=== PATIENT | male | born 1960 | race Caucasian/White ===

== ENCOUNTER 2018-11-22 01:46 | Inpatient (IN) | payer BC, OTHER ==
--- NOTE | 2018-11-21 11:20 | LEVENE H&P ---
DATE OF ADMISSION: November 22, 2018 IDENTIFICATION/CHIEF COMPLAINT The patient is a 57-year-old gentleman with a chief complaint of left knee pain. HISTORY OF PRESENT ILLNESS Patient has a history of knee arthritis progressively painful and debilitating, refractor to conservative care. Surgery is indicated to relieve symptoms after failure of nonoperative measures. PAST MEDICAL HISTORY 1. Silent AK. 2. Childhood asthma. 3. Arthritis. 4. Neck and back problems. 5. History of throat cancer, clear after surgery and radiation therapy. 6. Remote history of MRSA. PAST SURGICAL HISTORY 1. Total of eight knee surgeries in the 1980s. 2. Groin hernia. 3. Thumb repair. 4. Three neck operations. ALLERGIES Pet dander, grass and environmental allergies. No known drug allergies. CURRENT MEDICATIONS Singulair 10 mg p.o. q.d., mirtazapine 30 mg p.o. q.h.s., Trazodone 50 mg p.o. q.h.s., Albuterol rescue inhaler as needed. FAMILY HISTORY Mother with skin cancer and hypertension. Father notable for heart disease and cancer. SOCIAL HISTORY Negative for tobacco use. He did smoke and quit in 2018. He used to drink daily, 8 or 10 beers per day. Presently, not drinking. PHYSICAL EXAMINATION GENERAL: This is a well-developed, well-nourished male who appears stated age. HEENT: Normocephalic, atraumatic. NECK: Supple. LUNGS: Clear. HEART: Regular. ABDOMEN: Soft. ORTHOPEDIC EXAMINATION Knee has a well-healed surgical scar consistent with prior operation. Stiffened on range. Crepitus noted. Effusion present. Extensor function is intact. Gross stability is good. Radiographs demonstrate end-stage knee arthritis. ASSESSMENT Left knee end-stage degenerative joint disease, progressively painful and debilitating, refractor to conservative care. PLAN Per patient's request, we are going to proceed with total knee arthroplasty. Nature of the procedure, risks and benefits and anticipatory rehab course reviewed. The risks of the procedure include, but are not limited, to , major medical or anesthetic complication, infection, neurovascular injury, blood transfusion, stiffness, scarring, fracture, tendon rupture, instability, implant loosening, migration or failure, persistent or recurrent pain, need for additional surgery and other unforeseen. He understands and wishes to proceed. A signed permit is placed in the chart. No guarantees are given or implied. [facility]
[2018-11-21 13:29] LABS: INR 0.97
[2018-11-22] VITALS (14 sets, daily range): BP systolic 97–149; BP diastolic 68–105
[~2018-11-22] VITALS: Ht 180.3 cm; Wt 73.9 kg
[~2018-11-22 01:46] MED LIST: ACET500T68 PO; MIRT-25 PO; MONT10TA PO; TRAZ50TA52 PO
[2018-11-22] MEDS: NORMOSOL R SOLN(*) 1000 ML BAG 1,000 ML IV PRN ×2 (10:01→12:40)
[2018-11-22] MEDS ORDERED: MIDAZOLAM 2 MG/2 ML VIAL IVP PRN (10:45)
[2018-11-22] MEDS ORDERED: ceFAZolin(*) 1 GM VIAL 1 GM in NS(*) 0.9% 100 ML MINI-BAG 100 ML IVPB ONE (10:45)
[2018-11-22] MEDS ORDERED: LIDOCAINE/SOD BICARB 8.4% SYR ID ONE (10:45)
[2018-11-22] MEDS ORDERED: CELECOXIB 200 MG CAP PO ONE (10:45)
[2018-11-22] MEDS ORDERED: FAMOTIDINE 20 MG TAB PO ONE (10:45)
[2018-11-22] MEDS ORDERED: PREGABALIN 150 MG CAPSULE PO ONE (10:45)
[2018-11-22] MEDS ORDERED: ACETAMINOPHEN 500 MG TAB PO ONE (10:45)
[2018-11-22] MEDS ORDERED: ROPIVACAINE/EPI/CLONIDINE/KET 50 ML SYRINGE INJ ONE (10:45)
[2018-11-22] MEDS ORDERED: TRANEXAMIC AC 1000 MG/10ML SDV 1,000 MG in DEXTROSE 5% 50 ML BAG 50 ML IV ONE (10:45)
[2018-11-22] MEDS ORDERED: ONDANSETRON 4 MG/2 ML VIAL ONE (10:52)
[2018-11-22] MEDS ORDERED: PROPOFOL EMUL(*) 10MG/ML 20 ML 20 ML ONE (10:52)
[2018-11-22] MEDS ORDERED: DEXAMETHASONE SOD PHOS 10MG/ML ONE (10:52)
[2018-11-22] MEDS ORDERED: LIDOCAINE MPF 1% 5 ML VIAL ONE (10:52)
[2018-11-22] MEDS ORDERED: KETAMINE HCL 200 MG/20 ML MDV ONE (10:53)
[2018-11-22] MEDS ORDERED: VANCOMYCIN 1 GM VIAL ONE (12:00)
[2018-11-22] MEDS ORDERED: fentaNYL CITR 100 MCG/2 ML AMP ONE ×2 (12:03→15:22)
[2018-11-22] MEDS ORDERED: LACTATED RINGER 3000 ML BAG IR ONE (13:24)
[2018-11-22] MEDS ORDERED: NORMOSOL R SOLN(*) 1000 ML BAG 1,000 ML IV PRN (14:55)
[2018-11-22] MEDS ORDERED: diphenhydrAMINE 50 MG/ML VIAL IVP PRN (14:55)
[2018-11-22] MEDS ORDERED: BISACODYL 10 MG SUPP PR PRN (14:55)
[2018-11-22] MEDS ORDERED: DIAZEPAM 5 MG TAB PO PRN (14:55)
[2018-11-22] MEDS ORDERED: PROMETHAZINE 25 MG/ML 1 ML AMP IVP PRN (14:55)
[2018-11-22] MEDS ORDERED: FLUSH 10 ML SYR IVP PRN (14:55)
[2018-11-22] MEDS ORDERED: MAGNESIUM HYDROXIDE* 30ML UDCP PO PRN (14:55)
[2018-11-22] MEDS ORDERED: ACETAMINOPHEN 325 MG TAB PO PRN (14:55)
[2018-11-22] MEDS ORDERED: BENZOCAINE/MENTHOL 1 EACH LOZG PO PRN (14:55)
[2018-11-22] MEDS ORDERED: diphenhydrAMINE 25 MG CAP PO PRN (14:55)
[2018-11-22] MEDS ORDERED: ZOLPIDEM TARTRATE 5 MG TAB PO PRN (14:55)
--- NOTE | 2018-11-22 15:11 | RADIOLOGY IMAGING REPORT ---
FACILITY: [facility] - [place], [place] PATIENT NAME: Orestes Leung : 1960 MR: [id number] V: [id number] EXAM DATE: ORDERING PHYSICIAN: JOHNNY GARCÍA TECHNOLOGIST: Location: [facility] [place] Patient: Orestes Leung : 1960 Visit/Account:[id number] Date of Sevice: 11/22/2018 KNEE LIMITED LEFT Indication: POST-OP PLACEMENT Comparison: None. Findings: There are postoperative changes from a left total knee arthroplasty. The femoral tibial an d patellar components appear in good alignment. Skin elsy are noted. IMPRESSION: Postoperative changes left total knee arthroplasty. Report Dictated By: Andrey Guo at 11/22/2018 3:02 PM Report E-Signed By: Andrey Guo at 11/22/2018 3:03 PM WSN:[id number]
[2018-11-22] MEDS: APAP/HYDROCODONE 325/7.5 TAB PO PRN ×2 (15:58→20:52)
--- NOTE | 2018-11-22 16:35 | Hospitalist Consultation ---
History of Present Illness Requesting Physician Dr. Graham Reason for Consult Medical Management of Comorbidities Chief Complaint s/p left knee replacement History of Present Illness He was admitted s/p left knee replacement. It is reported the surgery went well and without complication. History Problems: (1) Seasonal allergies Status: Chronic (2) Depression Status: Chronic (3) Squamous cell carcinoma Status: Chronic Home Meds Reported Medications Acetaminophen (TYLENOL EXTRA STRENGTH) 500 Mg Tablet, 500 MG PO QHS, TAB 11/15/18 Montelukast Sodium (SINGULAIR) 10 Mg Tablet, 1 TAB PO QHS, TAB 11/15/18 Mirtazapine (MIRTAZAPINE) 30 Mg Tablet, 30 MG PO QHS 11/15/18 Trazodone Hcl (TRAZODONE HCL) 50 Mg Tablet, 50 MG PO QHS 11/15/18 Allergies: Coded Allergies: No Known Drug Allergies (Unverified , 11/15/18) Patient History: FH: HTN (hypertension) FATHER FH: cancer MOTHER FH: heart disease MOTHER FH: skin cancer FATHER Hx Smoking: Yes (1PPD X 20 YEARS QUIT 2018 ) Smoking Status: Former Smoker Caffeine Intake: Tea, Soda Caffeine/Cups Per Day: OCC Hx Alcohol Use: Yes Alcohol Used: Beer Hx Substance Use Disorder: No Review of Systems All Systems Reviewed/Normal: Yes, Except as Noted Exam Vital Signs Vital Signs Date Time Temp Pulse Resp B/P (MAP) Pulse Ox O2 Delivery O2 Flow Rate FiO2 11/22/18 16:16 97.7 91 16 135/93 (107) 99 Nasal Cannula 2.0 General Appearance: Alert, Awake, No Acute Distress, Afebrile Neuro: No Gross deficits Cardiovascular: Regular Rate and Rhythm Respiratory: No Respiratory Distress, Clear to Auscultation Psych: Alert & Oriented X3, Appropriate Mood & Affect Assessment and Plan Problems: (1) Status post left knee replacement Status: Acute Assessment & Plan: Followed by Dr. Graham. He will be placed on Aspirin for DVT prophylaxis. (2) Seasonal allergies Status: Chronic Assessment & Plan: Continue chronic Singulair. (3) Depression Status: Chronic Assessment & Plan: Continue chronic Trazodone and Mirtazapine. (4) Squamous cell carcinoma Status: Chronic Assessment & Plan: In throat. In remission as of 09/2018. Venous Thromboembolism Antithrombotics Is Pt On Any Antithrombotics?: No LINDA BUTTS [facility] Nov 22, 2018 16:35
[2018-11-22] MEDS: CELECOXIB 200 MG CAP PO SCH (17:22)
--- NOTE | 2018-11-22 18:36 | NUR ---
Physical Therapy Impression PT eval completed followed by transfer trng. Pt able to tolerate side step at EOB only. Pt unaware of proprioception and using very narrow base of support with side step. Unsafe to advance to distance ambulation at this time. Pt encouraged to get up later this evening with nursing once spinal block is less effective. Physical Therapy Goals 1. Pt to be SBA/Mod indep with bed mobility and supine to/from sit trnsfrs 2. Pt to be SBA/Mod indep with sit to/from stand transfers 3. Pt to be SBA/Mod indep to ambulate x 100' with 4WW safely 4. Pt to complete up/down platform step with CGA/SBA Patient's Goals
[2018-11-22] MEDS ORDERED: MIRTAZAPINE 30 MG TAB 30 MG TAB PO SCH (21:00)
[2018-11-22] MEDS ORDERED: traZODone HCL 50 MG TAB PO SCH (21:00)
[2018-11-22] MEDS ORDERED: MONTELUKAST SODIUM 10 MG TAB PO SCH (21:00)
[2018-11-22] MEDS: ceFAZolin(*) 1 GM VIAL 1 GM in NS(*) 0.9% 100 ML MINI-BAG 100 ML IVPB SCH (21:19)
[2018-11-23] MEDS: APAP/HYDROCODONE 325/7.5 TAB PO PRN ×2 (02:55→07:43)
[2018-11-23 02:56] VITALS: BP 131/81
[2018-11-23] MEDS: ceFAZolin(*) 1 GM VIAL 1 GM in NS(*) 0.9% 100 ML MINI-BAG 100 ML IVPB SCH (04:27)
--- NOTE | 2018-11-23 06:17 | OPERATIVE REPORT 1 ---
EVENT DATE: November 22, 2018 SURGEON: Malik Graham MD ANESTHESIOLOGIST: Baljit Wynn MD ANESTHESIA: General plus spinal. DIRECTOR OF STRATEGIC COMMUNICATIONS: Fernando Zazueta PA-C PREOPERATIVE DIAGNOSIS Left knee degenerative joint disease. POSTOPERATIVE DIAGNOSIS Left knee degenerative joint disease. PROCEDURE PERFORMED Left total knee arthroplasty. ESTIMATED BLOOD LOSS Minimal. DRAINS None. SPECIMENS None. COMPLICATIONS None apparent. TOURNIQUET TIME 42 minutes. IMPLANTS USED [place] Triathlon knee system with 4 left PS femur, 5 standard tibial baseplate, 36 mm [place] symmetric all-polyethylene patellar button, 11 mm PS tibial tray liner. Polyethylene is X3. INDICATIONS FOR PROCEDURE Orestes has prolonged and intractable pain related to end-stage knee arthritis. Surgery is indicated to relieve symptoms after failure of nonoperative measures. DESCRIPTION OF PROCEDURE Patient was taken to the operating room and placed supine on the operating table. Spinal block was administered by the anesthesiologist. General anesthesia was induced. The antibiotics and TXA were administered IV. Left lower extremity was prepped and draped in the usual sterile fashion for orthopedic surgery. He has two old incisions, a low medial incision and an irregular lateral parapatellar incision. In order to minimize risk of skin devascularization, a lateral incision was selected, as he is lean and this will easily be mobilized in order to permit a medial parapatellar arthrotomy to be performed. Incision was carried down through the scar directly to the extensor mechanism. Full- thickness flap was developed far enough medially to allow the medial parapatellar arthrotomy to be performed. Patella was everted. Knee was brought into a flexed position. Fat pad and anterior horns of the menisci and the cruciate ligaments were debrided. A very titrated minimal medial release was performed subperiosteally to start to balance the knee. Step drill was used to enter the distal femur. A [id number] alignment guide was used to engage the isthmus. Cut was set for 6 degrees of valgus relative to the anatomic axis. A 10 mm resection block was applied and pinned. Cuts were made with an oscillating saw. AP sizer cut was applied to the distal femur, positioned for 3 degrees of external rotation relative to the posterior condyles. A size 4 was optimal without risk of notching. A four-in-one cutting block was applied. Anterior, posterior, posterior chamfer, and anterior chamfer cuts were made respectively. PS block was applied. Center, medial and lateral bone was removed from the box. Trial femur had nice fit. Attention was then turned to tibial preparation. Extramedullary guide was applied and positioned for varus, valgus, posterior slope, and rotation. It was set to resect 9 mm from the relatively intact lateral tibial plateau. It was dropped down a couple millimeters to assure an adequate cut. Block was pinned. Extramedullary alignment check was made and the cuts made with an oscillating saw. No further releases other than removal of spurs and some posterior bone were required to balance the gaps. A 5 tibial base plate provided optimal bony coverage without soft tissue overhang. This was inserted along with the trial liner and trial femur. The knee was brought into extension. Patella was taken from the starting thickness of 25 to residual of 15 with patellar clamp and oscillating saw. The 36 provided optimal bony coverage without soft tissue overhang. Lug holes were drilled. The patella tracked nicely with a no-touch technique. Final tibial preparation consisted of assuring appropriate rotational and translational position of the component. Boss was reamed, fin was punched, and surface was lavaged. Mix of methacrylate was made and components cemented in single stage. Once cement was fully polymerized, tourniquet was deflated and hemostasis assured. The wound was copiously lavaged to remove all loose debris. The 11 PS tibial tray trial filled up the gap ideally, allowing the knee to drop to full extension without hyperextension, providing optimal soft tissue tension and stability. Tray was lavaged and dried and the excellent liner was locked into the baseplate. Joint was reduced. Arthrotomy was closed in flexion with #2 Ethibond, subcu with 3-0 Vicryl, and skin with surgical elsy. Xeroform was applied, followed by dry sterile dressing and compression wrap. Patient was awakened from anesthesia and taken to the recovery room in stable condition, having tolerated the procedure well. Plan is for standard TKA rehab. [facility]
[2018-11-23 07:29] VITALS: BP 100/81
[2018-11-23] MEDS ORDERED: ASPI-757 PO (08:00)
[2018-11-23] MEDS ORDERED: HYDR-654 PO (09:00)
[2018-11-23] MEDS ORDERED: ASPIRIN 325 MG TAB PO SCH (09:00)
--- NOTE | 2018-11-23 09:00 | NUR ---
Physical Therapy Impression PT goals met. Pt ready for d/c from a mobility stand point. Physical Therapy Goals 1. Pt to be SBA/Mod indep with bed mobility and supine to/from sit trnsfrs 2. Pt to be SBA/Mod indep with sit to/from stand transfers 3. Pt to be SBA/Mod indep to ambulate x 100' with 4WW safely 4. Pt to complete up/down platform step with CGA/SBA Patient's Goals
[2018-11-23] MEDS: CELECOXIB 200 MG CAP PO SCH (09:31)
--- NOTE | 2018-11-23 09:36 | Hospitalist Progress Note ---
Subjective Progress Notes Subjective He was admitted s/p knee replacement. He had no acute events overnight. He has no complaints this morning. Patient Complains of: Cardiovascular: No: Chest Pain Respiratory: No: Shortness of Breath Physical Exam Vital Signs Date Time Temp Pulse Resp B/P (MAP) Pulse Ox O2 Delivery O2 Flow Rate FiO2 11/23/18 07:29 98.3 100/81 (87) 11/23/18 02:56 103 96 11/22/18 21:14 Nasal Cannula 2.0 11/22/18 16:16 16 Intake and Output 11/23/18 01:03 Intake Total 4925 ml Output Total 1605 ml Balance 3320 ml Intake Oral 1220 ml IV Total 1855 ml Other 1850 ml Output Urine Total 1575 ml Estimated Blood Loss 30 ml # Voids 2 General Appearance: Alert, Awake, No Acute Distress, Afebrile Neuro: No Gross deficits Cardiovascular: Regular Rate and Rhythm Respiratory: No Respiratory Distress, Clear to Auscultation Psych: Alert & Oriented X3, Appropriate Mood & Affect Assessment and Plan Problems: (1) Status post left knee replacement Status: Acute Assessment & Plan: Followed by Dr. Graham. He will be placed on Aspirin for DVT prophylaxis. (2) Seasonal allergies Status: Chronic Assessment & Plan: Continue chronic Singulair. (3) Depression Status: Chronic Assessment & Plan: Continue chronic Trazodone and Mirtazapine. (4) Squamous cell carcinoma Status: Chronic Assessment & Plan: In throat. In remission as of 09/2018. Exam Sepsis Risk: No Definite Risk LINDA BUTTS [employer] Nov 23, 2018 09:36
== END 2018-11-23 10:00 | disposition home or self-care (01) | DRG 470 ==
LOC: OR 01:46 → MED 16:10
PROVIDERS: ADMIT Orthopaedic Surgery; ATTEND Orthopaedic Surgery
PROC: 0SRD0J9 Replacement of Left Knee Joint with Synthetic Substitute, Cemented, Open Approach (ICD-10-PCS; principal; 2018-11-22 12:38)
DX: M17.12 Unilateral primary osteoarthritis, left knee (principal); F32.9 Major depressive disorder, single episode, unspecified; Z85.820 Personal history of malignant melanoma of skin; Z87.891 Personal history of nicotine dependence; I25.2 Old myocardial infarction; Z85.12 Personal history of malignant neoplasm of trachea; Z86.14 Personal history of Methicillin resistant Staphylococcus aureus infection
CPT/HCPCS: 36415; 85610; 86850; 86900; 86901; 97161; C1713; C1776; J0690; J1100; J2001; J2250; J2405; J2704; J3010; J3370; J3490; J7060